=== PATIENT | female | born 1965 | race Caucasian/White ===

== ENCOUNTER 2025-07-26 18:18 | Emergency (ER) | payer MEDICARE, OTHER ==
[2025-07-26 18:37] VITALS: TEMP 97.2
--- NOTE | 2025-07-26 18:39 | ERPHSYRPT ---
- History of Present Illness Time Seen by Provider: 07/26/25 18:30 Source: patient Exam Limitations: no limitations Patient Subjective Stated Complaint: . Triage Nursing Assessment: . Physician History: 60-year-old female presents to the emergency room lower back pain that radiates down to her buttocks patient denies any falls or trauma patient reports she recently moved out here about a month ago she reports she has been trying ibuprofen with minimal relief she was seen at [facility] and had x- rays done but was not prescribed anything about a month ago she reports she had adjustments done by chiropractor without any improvement she is now in ED for further eval has any bowel or bladder incontinence Timing/Duration: week(s), intermittent Quality: aching Back Pain Location: lumbar spine Back Pain Radiation: buttocks Severity of Pain-Max: mild Severity of Pain-Current: mild Modifying Factors: Improves With: nothing Associated Symptoms: lower back pain, muscle spasms Allergies/Adverse Reactions: No Known Drug Allergies Allergy (Verified 07/26/25 18:23) Home Medications: ARIPiprazole [Aripiprazole] 10 mg PO DAILY 07/15/25 [History] Albuterol Sulfate [Albuterol Sulfate Hfa] 2 puff IH Q6H PRN 07/15/25 [History] Gabapentin [Neurontin ] 1 cap PO TID 07/15/25 [History] PANTOPRAZOLE 40 mg Tablet [Protonix 40MG Tablet] 1 tab PO DAILY 07/15/25 [History] Venlafaxine HCl ER 75 mg [Effexor XR 75 MG] 1 cap PO DAILY 07/15/25 [History] clonazePAM [Clonazepam] 1 tab PO TID 07/15/25 [History] Atorvastatin Calcium [Lipitor] 10 mg PO DAILY 07/23/25 [History] Fenofibrate 1 tab PO DAILY 07/23/25 [History] Topiramate [Topamax] 1 tab PO DAILY 07/23/25 [History] Valsartan/Hydrochlorothiazide [Valsartan-Hctz 160-25 mg Tab] 1 tab PO DAILY 07/23/25 [History] Hx Influenza Vaccination/Date Given: No Hx Pneumococcal Vaccination/Date Given: No Immunizations Up to Date: Yes Travel Risk - International Travel Have you traveled outside of the country in past 3 weeks: No - Emerging Infectious Disease Are you exhibiting symptoms associated with any current EIDs: No - Review of Systems Constitutional: No Fever, No Chills Eyes: No Symptoms Ears, Nose, & Throat: No Symptoms Respiratory: No Cough, No Dyspnea Cardiac: No Chest Pain, No Edema, No Syncope Abdominal/Gastrointestinal: No Abdominal Pain, No Nausea, No Vomiting, No Diarrhea Genitourinary Symptoms: No Dysuria Musculoskeletal: Back Pain, No Neck Pain Skin: No Rash Neurological: No Dizziness, No Focal Weakness, No Sensory Changes Psychological: No Symptoms Endocrine: No Symptoms All Other Systems: Reviewed and Negative - Past Medical History Pertinent Past Medical History: Yes Cardiac History: Hypertension - Past Surgical History Past Surgical History: Yes Gastrointestinal: Cholecystectomy Musculoskeletal: Orthopedic Surgery Female Surgical History: Tubal Ligation Other Surgical History: LEFT ANKLE - Social History Smoking Status: Current every day smoker Exposure to second hand smoke: Yes Drug Use: marijuana - Social Determinants of Health Will the patient participate in the screening: Yes Do you worry about a steady place to live?: No Do you have any problems with any of the following?: No known problems In the past 12 months,have you had to go without utilities?: Yes Transportation Issues: Yes Has anyone in your support network made you feel unsafe?: No Have you or anyone in your house had to go w/o enough food: Yes - Nursing Vital Signs Nursing Vital Signs: Initial Vital Signs Pulse Rate 89 07/26/25 18:30 Respiratory Rate 16 07/26/25 18:30 Blood Pressure 187/115 07/26/25 18:30 O2 Sat by Pulse Oximetry 96 07/26/25 18:30 Pain Scale Pain Intensity [Back] 8 Pain Intensity 9 - Physical Exam General Appearance: no apparent distress, alert Eye Exam: PERRL/EOMI, eyes nml inspection Neck Exam: normal inspection, non-tender, supple, full range of motion, No meningismus, No midline tenderness Respiratory Exam: normal breath sounds, lungs clear, No respiratory distress Cardiovascular Exam: regular rate/rhythm, normal heart sounds Gastrointestinal Exam: soft, No tenderness, No mass Back Exam: muscle spasm, other (Lower lumbar tenderness paraspinal muscle spasms) Extremity Exam: normal inspection, normal range of motion, No calf tenderness, No pedal edema Neurologic Exam: alert, oriented x 3, cooperative, side puller II-XII nml as tested, normal mood/affect, nml station & gait, sensation nml, No motor deficits Skin Exam: normal color, warm, dry, No rash Ordered Tests: Active Orders 24 hr Category Date Time Status ACO SDOH Referral ONCE Cons 07/26/25 18:30 Active LUMBAR SPINE W/O [CT] Stat Exams 07/26/25 18:32 Completed Medication Summary Discontinued Medications Generic Name Dose Route Start Last Admin Trade Name Christine PRN Reason Stop Dose Admin Diazepam 5 mg 07/26/25 18:30 07/26/25 18:45 Diazepam 5 Mg Tablet PO 07/26/25 18:31 5 mg STAT ONE Administration Diazepam Confirm 07/26/25 18:42 Diazepam 10 Mg/2 Ml Disp.Syringe Administered 07/26/25 18:43 Dose 10 mg .ROUTE .STK-MED ONE Diazepam Confirm 07/26/25 18:44 Diazepam 5 Mg Tablet Administered 07/26/25 18:45 Dose 5 mg .ROUTE .STK-MED ONE Ketorolac Tromethamine 15 mg 07/26/25 18:30 07/26/25 18:45 Ketorolac Tromethamine 30 Mg/Ml Inj IM 07/26/25 18:31 15 mg STAT ONE Administration Ketorolac Tromethamine Confirm 07/26/25 18:42 Ketorolac Tromethamine 30 Mg/Ml Inj Administered 07/26/25 18:43 Dose 30 mg .ROUTE .STK-MED ONE - Progress Progress Note: 07/26/25 20:20 Imaging Report Continued Page: Name: EVA BISHOP Procedure Date: 07/26/25 Procedures: [id number] CT/LUMBAR SPINE W/O Technologist: Efra Dey Transcribed: 07/26/252008 [employer] Manager: HO NORTON MD Printed: 07/26/252008 Page: Imaging Report [~ rep ct labl] Technologist: Efra Dey Transcribed: 07/26/252008 [employer] Log[employer] Manager: HO NORTON MD Printed: 07/26/252008 Page: Imaging Report [~ rep ct labl] [facility] [place] [address] [facility], [address] [place], [place] [address] Name: EVA BISHOP Attending Physician: Ordering Physician: PONEC LOMBARDI IMAGING REPORT : 1965 Age: 60 Sex: F Location: ED Report #: [id number] Exam Date: 07/26/25 Status: [facility] Procedures: [id number] CT/LUMBAR SPINE W/O CLINICAL HISTORY: back pain COMPARISON: None TECHNIQUE: A CT non-contrast scan of the lumbar spine was performed. Axial images were obtained with reformatted coronal and sagittal images and were submitted for interpretation. One of the following dose reduction techniques was utilized for this exam: automated exposure control, adjustment of the mA and/or kV according to patient size, and use of iterative reconstruction. FINDINGS: Vertebrae: Mild anterolisthesis of the L3 over L4 vertebra, with facet arthropathy denoting grade 1 degenerative anterolisthesis. No fractures noted. Reduced bone density, denoting osteopenia with Modic type III changes. Marginal osteophytes. Mild age-matched vertebral collapse (grade I) is noted. Left partially sacralized L5 with osteoarthritis at the junctional joint is noted. Intervertebral Discs: Narrowed disc spaces, more prominent at the L3-4 and L4-5 levels, with an air vacuum noted, denoting degeneration. Spinal Canal and Neural Foramina: At T12-L1, L1-2, and L2-3, diffuse disc bulges cause moderate spinal canal stenosis with moderate exit neural foraminal compression and moderate exit nerve root compression bilaterally. Mild disc calcifications are also noted. At L3-4, L4-5, and L5-S1, diffuse disc bulges cause marked spinal canal stenosis with marked exit neural foraminal compression and marked exit nerve root compression bilaterally. Hypertrophied ligamenta flava and facet arthropathy add to the neural compromise at all levels. Facet Joints: Multilevel facet arthropathy noted. Degenerative changes at the sacroiliac joints. Soft Tissues: Normal appearance of the paraspinal soft tissues. No abnormal masses, fluid collections, or signs of inflammation. Atherosclerosis of the aorta. IMPRESSION: 1. Mild anterolisthesis of the L3 over L4 vertebra, with facet arthropathy denoting grade 1 degenerative anterolisthesis. 2. Reduced bone density, denoting osteopenia with Modic type III changes. 3. Mild age-matched vertebral collapse (grade I) is noted. 4. Degenerative changes. 5. Left partially sacralized L5 with osteoarthritis at the junctional joint is noted. 6. Multiple disc bulges with moderate to marked neural compromise. 7. Degenerative changes at the sacroiliac joints. 8. No fractures. Electronically Signed by: Ho Norton MD. (07/26/2025 20:09:45 EST) Reported by: HO NORTON MD Signed by: HO NORTON MD Signed date/time: 07/26/252008 Copies to: PONCE LOMBARDI KATHLEEN MARIE Patient has osteoarthritis with multiple disc bulging and anterior listhesis patient was informed of her results she will follow-up with orthopedic she does not have a family doctor advise she follow-up with Dr. Sow patient be prescribed Valium as well as ibuprofen for back pain patient advised to follow- up with her doctor no acute fractures noted recommend she use a brace - Departure Departure Disposition: Home Clinical Impression: Anterolisthesis of lumbar spine, Bulging lumbar disc Osteoarthritis Qualifiers: Osteoarthritis location: unspecified site Osteoarthritis type: unspecified Qualified Code(s): M19.90 - Unspecified osteoarthritis, unspecified site Condition: Stable Critical Care Time: No Referrals: JOSE HAGAN NP [Primary Care Provider, [facility]] - Follow up/PCP as directed MIGUEL SOW MD [ACTIVE STAFF, FAMILY PRACTICE] - Follow up/PCP as directed ALEYDA DURÁN DO [ACTIVE STAFF, ORTHOPEDICS] - Follow up/PCP as directed Instructions: Low Back Pain (DC), Osteoarthritis, Herniated disc Prescriptions: Ibuprofen 600 mg PO Q8H #10 tablet Diazepam 5 mg [Valium 5 MG] 5 mg PO BIDPRN PRN 3 Days #6 tablet MDD 2 PRN Reason: Muscle Spasms
[2025-07-26] MEDS ORDERED: VALIUM 10 MG/2 ML SYRINGE ONE (18:42)
[2025-07-26] MEDS ORDERED: TORAdol 30 mg Injection ONE (18:42)
[2025-07-26] MEDS ORDERED: Valium 5 MG ONE (18:44)
[2025-07-26] MEDS: TORAdol 30 mg Injection IM ONE (18:45)
[2025-07-26] MEDS: Valium 5 MG PO ONE (18:45)
--- NOTE | 2025-07-26 20:11 | XRAY ---
CLINICAL HISTORY: back pain COMPARISON: None TECHNIQUE: A CT non-contrast scan of the lumbar spine was performed. Axial images were obtained with reformatted coronal and sagittal images and were submitted for interpretation. One of the following dose reduction techniques was utilized for this exam: automated exposure control, adjustment of the mA and/or kV according to patient size, and use of iterative reconstruction. FINDINGS: Vertebrae: Mild anterolisthesis of the L3 over L4 vertebra, with facet arthropathy denoting grade 1 degenerative anterolisthesis. No fractures noted. Reduced bone density, denoting osteopenia with Modic type III changes. Marginal osteophytes. Mild age-matched vertebral collapse (grade I) is noted. Left partially sacralized L5 with osteoarthritis at the junctional joint is noted. Intervertebral Discs: Narrowed disc spaces, more prominent at the L3-4 and L4-5 levels, with an air vacuum noted, denoting degeneration. Spinal Canal and Neural Foramina: At T12-L1, L1-2, and L2-3, diffuse disc bulges cause moderate spinal canal stenosis with moderate exit neural foraminal compression and moderate exit nerve root compression bilaterally. Mild disc calcifications are also noted. At L3-4, L4-5, and L5-S1, diffuse disc bulges cause marked spinal canal stenosis with marked exit neural foraminal compression and marked exit nerve root compression bilaterally. Hypertrophied ligamenta flava and facet arthropathy add to the neural compromise at all levels. Facet Joints: Multilevel facet arthropathy noted. Degenerative changes at the sacroiliac joints. Soft Tissues: Normal appearance of the paraspinal soft tissues. No abnormal masses, fluid collections, or signs of inflammation. Atherosclerosis of the aorta. IMPRESSION: 1. Mild anterolisthesis of the L3 over L4 vertebra, with facet arthropathy denoting grade 1 degenerative anterolisthesis. 2. Reduced bone density, denoting osteopenia with Modic type III changes. 3. Mild age-matched vertebral collapse (grade I) is noted. 4. Degenerative changes. 5. Left partially sacralized L5 with osteoarthritis at the junctional joint is noted. 6. Multiple disc bulges with moderate to marked neural compromise. 7. Degenerative changes at the sacroiliac joints. 8. No fractures. Electronically Signed by: Arsen Norton MD. (07/26/2025 20:09:45 EST)
[2025-07-26 20:40] VITALS: BP 178/110; PULSE 90; RESP 18; O2SAT 99
== END 2025-07-26 20:40 | disposition home or self-care (01) ==
LOC: ED 18:18
DX: M51.369 Other intervertebral disc degeneration, lumbar region without mention of lumbar back pain or lower extremity pain (principal); M43.16 Spondylolisthesis, lumbar region; M19.90 Unspecified osteoarthritis, unspecified site; M54.50 Low back pain, unspecified; I10 Essential (primary) hypertension; Z79.899 Other long term (current) drug therapy; Z72.0 Tobacco use; Z59.12 Inadequate housing utilities; Z59.82 Transportation insecurity; Z59.41 Food insecurity